=== PATIENT | male | born 1980 ===

== ENCOUNTER 2020-06-28 18:21 | Outpatient (CLI) | payer BC, SELFPAY ==
--- NOTE | ~2020-06-28 | XR_ITS ---
EXAMINATION: XR chest 2V EXAM DATE: 06/28/2020 18:33 INDICATION: Atypical chest pain . TECHNIQUE: Frontal and lateral projections of the chest obtained and reviewed. There is no prior shaista dy for comparison. FINDINGS: The lungs are clear. There are no pleural effusions. The cardiomediastinal silhouette is within normal limits. There is no pneumothorax suspected. The bones and soft tissues are unremarkab le. IMPRESSION: No acute cardiopulmonary findings. Reviewed, dictated and finalized at location A. [employer]
== END 2020-06-28 18:22 ==
PROVIDERS: PCP Physician Assistant; Visit Provider Physician Assistant
DX: R07.89 Other chest pain (principal)
CPT/HCPCS: 71046